=== PATIENT | female | born 1940 | race Caucasian/White ===

== ENCOUNTER → 2016-12-10 | Outpatient (CLI) | payer OTHER | LOC: PCVCIMAG 09:25 | PROVIDERS: ATTEND Internal Medicine | DX: I71.4 Abdominal aortic aneurysm, without rupture (principal) | CPT/HCPCS: 93978 ==

== ENCOUNTER → 2017-05-20 | Outpatient (CLI) | payer OTHER | END | disposition home or self-care (01) | LOC: PCVCCLINIC 15:45 | PROVIDERS: ATTEND Nuclear Medicine Nuclear Cardiology | DX: I71.4 Abdominal aortic aneurysm, without rupture (principal); I77.9 Disorder of arteries and arterioles, unspecified; I10 Essential (primary) hypertension; I42.9 Cardiomyopathy, unspecified; E78.00 Pure hypercholesterolemia, unspecified; Z87.891 Personal history of nicotine dependence | CPT/HCPCS: 36415; G0463 ==

== ENCOUNTER → 2017-05-23 | Outpatient (CLI) | payer OTHER ==
[~2017-05-23] MED LIST: ASPIRIN 325 MG TABLET ONE; CLOPIDOGREL BISULFATE 75 MG TABLET ONE; DIAZEPAM 10 MG TABLET. ONE; EPINEPHrine 1 MG/ML VIAL ONE; HEPARIN SODIUM 5,000 UNIT/ML VIAL for PCVC. ONE; IODIXANOL 270 MG/ML 100 ML VIAL. ONE; IOHEXOL 300 MG/ML 100ML VIAL. ONE; IV NORMAL SALINE 1000ML BAG 1,000 ML ONE; LIDOCAINE 1% Multi-Dose 20 ML VIAL. ONE; LIDOCAINE 1%/EPI 1:100,000 20 ML VIAL. ONE; MIDAZOLAM HCL/PF 2 MG/2 ML VIAL. ONE; fentaNYL PF VIAL 100 MCG/2 ML VIAL ONE
--- NOTE | 2017-05-23 10:43 | PCVCINTER ---
EXAM: 1. AORTOGRAM AND BILATERAL ILIOFEMORAL ANGIOGRAPHY 2. BILATERAL RENAL ANGIOGRAPHY 3. COMPLETE MESENTERIC ANGIOGRAPHY 4. INFERIOR MESENTERIC ARTERY COIL EMBOLIZATION 5. RIGHT RENAL ARTERY STENT PLACEMENT INDICATION: Abdominal aortic aneurysm. Pre stent graft operative planning. Hypertension. Renal atherosclerosis. PROCEDURE: Procedure and risks of the procedures listed above were discussed with the patient and consent obtained. Risks including but not limited to bleeding, infection, stroke, vascular injury, neurologic injury, embolization, allergic reactions, bowel ischemia requiring resection, and contrast-induced nephropathy requiring dialysis were discussed as appropriate and consent obtained. Patient was placed on the angiography table. IV conscious sedation was utilized with appropriate monitoring from 8:15 AM through 9:45 AM. The right groin was prepped and draped in the normal sterile fashion. Ultrasound was used to interrogate the right groin and demonstrate the right common femoral artery. An ultrasound image was saved. Under ultrasound guidance a 21 gauge needle was used to gain access into the right common femoral artery and a 5F vascular sheath was placed. Catheter was placed into the suprarenal abdominal aorta and abdominal aortic angiogram performed. Catheter was placed into the distal abdominal aorta and bilateral iliofemoral angiography performed. Catheter was placed into the right renal arteries and right renal angiograms performed. Catheter was placed into the left renal arteries and left renal angiograms performed. Catheter was placed into the celiac axis and celiac angiogram performed. Catheter was placed in the superior mesenteric artery and SMA angiogram performed. Catheter was placed into the inferior mesenteric artery and KAILEY angiogram performed. In a coaxial fashion a microcatheter was placed into the proximal portion of the inferior mesenteric artery. Coil embolization in the proximal segment of the inferior mesenteric artery was carried out in the usual manner. Post embolization angiogram was performed. KAILEY coil embolization was carried out because of the KAILEY being a potential source of endoleak following stent graft repair of the aortic aneurysm. Patient was given 4000 units of heparin IV. Stent placement across area of high-grade stenosis in the proximal right renal artery was performed utilizing a 5 x 15 Palmaz blue stent with subsequent dilatation up to 5.2 mm. Catheters and wires removed. Sheath was removed and hemostasis obtained using the Exoseal device. No immediate complications. FINDINGS: Aortogram: There is one right and one left renal artery. 80% stenosis at the origin of the right renal artery caused by a large eccentric plaque. Moderate plaque proximal left renal artery causing mild stenosis. 5 cm below the level the renal arteries a fusiform aneurysm is present. This ends at the aortic bifurcation. Bilateral iliofemoral angiography: The right and left common and external iliac arteries show good patency. Both internal iliac arteries are patent. The right and left common femoral and profunda femoral arteries are patent as well as the visualized portions of the superficial femoral arteries bilaterally. Right renal artery: 80% stenosis at the origin the right renal artery caused by large eccentric plaque. Following stent placement the right renal artery is widely patent with good position of the stent. Left renal artery: Moderate plaque proximal vessel causing mild stenosis not felt to be flow-limiting. Celiac axis: Vessel is patent without significant stenosis. No branch vessel stenosis. Superior mesenteric artery: Vessel is patent without significant stenosis. No branch vessel stenosis. Inferior mesenteric artery: 80% stenosis proximal vessel. Vessel otherwise patent with no branch vessel stenosis. Following coil embolization there is good position of the coils in the proximal segment of the inferior mesenteric artery. IMPRESSION: Fusiform aneurysm distal abdominal aorta as detailed above. Coil embolization inferior mesenteric artery as described. 80% stenosis proximal right renal artery was treated with stent placement with good patency restored. LOC:[id number]
== END ==
LOC: PCVCINTER 07:29
PROVIDERS: ATTEND Internal Medicine
DX: K55.1 Chronic vascular disorders of intestine (principal); I71.4 Abdominal aortic aneurysm, without rupture; I70.1 Atherosclerosis of renal artery
CPT/HCPCS: 36245; 36252; 37236; 37242; 75630; 75726; 76937; C1725; C1751; C1760; C1769; C1876; C1887; C1894; J0171; J0690; J1644; J2250; J3010; J3490; J7030; Q9967

== ENCOUNTER → 2017-08-21 | Outpatient (CLI) | payer OTHER | END | disposition home or self-care (01) | LOC: PCVCCLINIC 13:11 | DX: I42.9 Cardiomyopathy, unspecified (principal); I10 Essential (primary) hypertension; E78.5 Hyperlipidemia, unspecified; E78.00 Pure hypercholesterolemia, unspecified; I71.4 Abdominal aortic aneurysm, without rupture; I77.9 Disorder of arteries and arterioles, unspecified; Z87.891 Personal history of nicotine dependence; Z79.82 Long term (current) use of aspirin; Z79.899 Other long term (current) drug therapy | CPT/HCPCS: 80061; 93005; G0463 ==

== ENCOUNTER → 2018-02-19 | Outpatient (CLI) | payer OTHER | END | disposition home or self-care (01) | LOC: PCVCCLINIC 11:03 | PROVIDERS: ATTEND Internal Medicine | DX: I43 Cardiomyopathy in diseases classified elsewhere (principal); I10 Essential (primary) hypertension; I65.23 Occlusion and stenosis of bilateral carotid arteries; E78.5 Hyperlipidemia, unspecified; E78.00 Pure hypercholesterolemia, unspecified; I71.4 Abdominal aortic aneurysm, without rupture; Z88.8 Allergy status to other drugs, medicaments and biological substances; Z87.891 Personal history of nicotine dependence; Z79.82 Long term (current) use of aspirin; Z79.899 Other long term (current) drug therapy | CPT/HCPCS: 80061; 93005; G0463 ==

== ENCOUNTER → 2018-08-25 | Outpatient (CLI) | payer OTHER ==
--- NOTE | 2018-08-25 10:32 | PCVCIMAG ---
APPROVED REPORT Laterality: Bilateral Indications Stenosis Risk Factors Hypertension: Hyperlipidemia CAD Doppler Spectral Velocity Analysis PSV / EDVPSV / EDV ECA (R) 86 / 9 cm/sECA (L) 69 / 11 cm/s dICA (R) 78 / 27 cm/sdICA (L) 85 / 27 cm/s Vinny (R) 65 / 19 cm/smICA (L) 77 / 29 cm/s pICA (R) 53 / 13 cm/spICA (L) 39 / 11 cm/s Bulb (R) 46 / 13 cm/sBulb (L) 29 / 7 cm/s dCCA (R) 54 / 12 cm/sdCCA (L) 70 / 14 cm/s mCCA (R) 53 / 13 cm/smCCA (L) 92 / 19 cm/s Vert (R) 37 / 9 cm/sVert (L) 46 / 15 cm/s ICA/CCA 1.44 ICA/CCA 0.93 Basic Measurements Blood Pressure: Pulses: Right Left RightLeft Brachial(Sitting) 136/[id number]/78mmHgTemporal Real Time B-Mode Imaging Vert. (R)AntegradeVert. (L)Antegrade Findings The right carotid bulb has mild plaque. The right proximal internal carotid artery shows <40% stenosis The right common carotid artery shows no significant stenosis. The right external carotid artery shows no significant stenosis. The left carotid bulb has no significant plaque. The left proximal internal carotid artery shows no significant stenosis. The left common carotid artery shows no significant stenosis. The left external carotid artery shows no significant stenosis. Conclusion 1. Right internal carotid artery stenosis (<40%) 2. Left internal carotid artey without significant stenosis 3. Antegrade vertebral flow Similar to Nov, 2015
--- NOTE | 2018-08-25 12:07 | PCVCIMAG ---
APPROVED REPORT Study performed: 08/25/2018 09:37:15 EXAM: Comprehensive 2D, Doppler, and color-flow Echocardiogram Patient Location: Echo lab Status: routine BSA: 1.83 HR: 72 bpmBP: 144/78 mmHg Rhythm: NSR Other Information Study Quality: Adequate Risk Factors: Cardiac Risk Factors: HTN, Hyperlipidemia Indications non ischemic cardiomyopathy 2D Dimensions IVSd: 11.29 (7-11mm) LVDd: 38.23 mm PWd: 10.46 (7-11mm)Ascending Ao: 31.97 (22-36mm) LVDs: 29.84 (25-40mm) Left Atrium: 33.81 (27-40mm) Aortic Root: 31.39 mm LV Single Plane 4CH: 51.95 % LV Single Plane 2CH: 48.22 % Biplane EF: 51.7 % Volumes Left Atrial Volume (Systole) Single Plane 4CH: 45.29 mLSingle Plane 2CH: 58.80 mL LA ESV Index: 29.00 mL/m2 Aortic Valve AoV Peak Gage.: 1.13 m/s AO Peak Gr.: 5.13 mmHgLVOT Max P.78 mmHg LVOT Max V: 0.83 m/s AI Vmax: 4.49 m/s AI Webster: 2.87 m/s2 AI PHT: 453.90 ms Mitral Valve E/A Ratio: 0.5 MV Decel. Time: 258.44 ms MV E Max Gage.: 0.56 m/s MV A Gage.: 1.04 m/s IVRT: 134.95 ms Pulmonary Valve PV Peak Gage.: 0.70 m/sPV Peak Gr.: 1.98 mmHg Pulmonary Vein P Vein S: 0.26 m/sP Vein A: 0.42 m/s P Vein D: 0.37 m/sP Vein A Dur.: 159.2 msec P Vein S/D Ratio: 0.70 Tricuspid Valve TR Peak Gage.: 2.34 m/s TR Peak Gr.: 21.90 mmHg TV Vmax: 0.52 m/s Left Ventricle The left ventricle is normal size. There is normal LV segmental wall motion. There is normal left ventricular wall thickness. Left ventricular systolic function is normal. LVEF is 50%. Mild diastolic dysfunction is present (impaired relaxation pattern). Right Ventricle The right ventricle is normal size. The right ventricular systolic function is normal. Atria The left atrium size is normal. The right atrium size is normal. Aortic Valve The aortic valve is mildly sclerotic. Mild aortic regurgitation There is no aortic valvular stenosis. Mitral Valve Mild mitral annular calcification. Mild mitral regurgitation. No evidence of mitral valve stenosis. Tricuspid Valve The tricuspid valve is normal in structure. Mild tricuspid regurgitation with PAP of 30 mmHg. Pulmonic Valve The pulmonary valve is normal in structure. Mild pulmonic regurgitation. Great Vessels The aortic root is normal in size. IVC is normal in size and collapses >50% with inspiration. Pericardium There is no pericardial effusion. There is no pleural effusion. <Conclusion> Left ventricular systolic function is normal. There is normal LV segmental wall motion. LVEF is 50%. Mild diastolic dysfunction The aortic valve is mildly sclerotic. Mild aortic regurgitation, no stenosis Mild mitral annular calcification. Mild mitral regurgitation. Mild tricuspid regurgitation with pulmonary artery pressure of 30 mmHg. There is no pericardial effusion.
== END | disposition home or self-care (01) ==
LOC: PCVCIMAG 09:34
PROVIDERS: ATTEND Internal Medicine
DX: I65.23 Occlusion and stenosis of bilateral carotid arteries (principal); I08.3 Combined rheumatic disorders of mitral, aortic and tricuspid valves; I11.0 Hypertensive heart disease with heart failure; I50.9 Heart failure, unspecified; I43 Cardiomyopathy in diseases classified elsewhere; E78.5 Hyperlipidemia, unspecified; I25.10 Atherosclerotic heart disease of native coronary artery without angina pectoris
CPT/HCPCS: 93306; 93880

== ENCOUNTER → 2018-11-10 | Outpatient (CLI) | payer OTHER | END | disposition home or self-care (01) | LOC: PCVCCLINIC 13:00 | PROVIDERS: ATTEND Internal Medicine | DX: I11.0 Hypertensive heart disease with heart failure (principal); I48.0 Paroxysmal atrial fibrillation; I50.9 Heart failure, unspecified; I43 Cardiomyopathy in diseases classified elsewhere; E78.5 Hyperlipidemia, unspecified; I65.23 Occlusion and stenosis of bilateral carotid arteries; I71.4 Abdominal aortic aneurysm, without rupture; Z88.6 Allergy status to analgesic agent; E03.9 Hypothyroidism, unspecified | CPT/HCPCS: 93005; G0463 ==

== ENCOUNTER → 2019-02-23 | Outpatient (CLI) | payer OTHER | END | disposition home or self-care (01) | LOC: PCVCCLINIC 10:00 | PROVIDERS: ATTEND Internal Medicine | DX: I11.0 Hypertensive heart disease with heart failure (principal); I50.9 Heart failure, unspecified; I43 Cardiomyopathy in diseases classified elsewhere; I48.0 Paroxysmal atrial fibrillation; E78.5 Hyperlipidemia, unspecified; I65.23 Occlusion and stenosis of bilateral carotid arteries; I71.4 Abdominal aortic aneurysm, without rupture; Z87.891 Personal history of nicotine dependence | CPT/HCPCS: 36415; 80061; 93005; G0463 ==